=== PATIENT | female | born 1940 | race Native Hawaiian/Other Pacific Islander ===

== ENCOUNTER 2019-04-26 18:10 | Outpatient (CLI) | payer OTHER | END 2019-04-26 18:36 | disposition short-term general hospital (02) | LOC: AMB 18:10 | DX: M62.81 Muscle weakness (generalized) (principal); R51 Headache; M54.2 Cervicalgia; M79.602 Pain in left arm | CPT/HCPCS: A0425; A0427 ==

== ENCOUNTER 2019-04-26 18:47 | Emergency (ER) | payer OTHER ==
[~2019-04-26] VITALS: Ht 170.2 cm; Wt 59.0 kg
[2019-04-26 20:30] LABS: PLATELET COUNT 141 K/uL (152-353)
[2019-04-26 21:01] LABS: POTASSIUM 4.9 mmol/L (3.6-5.2); SODIUM 144 mmol/L (136-145)
[2019-04-26 23:50] VITALS: BP 148/69; TEMP 97.3
== END 2019-04-26 23:55 | disposition home or self-care (01) ==
LOC: ED 18:47
PROVIDERS: Emergency Medicine
DX: R51 Headache (principal); S16.1XXA Strain of muscle, fascia and tendon at neck level, initial encounter; R07.89 Other chest pain; R00.1 Bradycardia, unspecified; W01.0XXA Fall on same level from slipping, tripping and stumbling without subsequent striking against object, initial encounter; Y92.89 Other specified places as the place of occurrence of the external cause
CPT/HCPCS: 36415; 80053; 82550; 82553; 84484; 85027; 93005; 96360; 99284

== ENCOUNTER 2022-05-03 09:35 | Emergency (ER) | payer OTHER ==
[~2022-05-03] VITALS: Ht 170.2 cm; Wt 66.7 kg
[2022-05-03 09:35] VITALS: TEMP 97.3
[2022-05-03 10:54] VITALS: BP 169/72
== END 2022-05-03 10:55 | disposition home or self-care (01) ==
LOC: ED 09:35
DX: S20.212A Contusion of left front wall of thorax, initial encounter (principal); W18.39XA Other fall on same level, initial encounter; Y92.89 Other specified places as the place of occurrence of the external cause
CPT/HCPCS: 99283